=== PATIENT | male | born 1965 | race American Indian/Alaskan Native ===

== ENCOUNTER 2016-09-25 02:37 | Emergency (ER) | payer MEDICARE, OTHER ==
[~2016-09-25 02:37] MED LIST: ADRENALIN ONE; CORDARONE IV ONE; SODIUM BICARBONATE IV ONE
--- NOTE | 2016-09-25 03:16 | Emergency Department Report ---
ED CPR HPI - General Chief Complaint: Cardiac Arrest/CPR Stated Complaint: CARDIAC ARREST Time Seen by Provider: 09/25/16 02:37 Source: EMS Mode of arrival: Stretcher Limitations: Altered Mental Status, Physical Limitation, Other - History of Present Illness Initial Comments: 51-year-old male with a past medical history of CAD, diabetes, and hypertension presents to the hospital with complaints of chest pain and presents to ER with cardiac arrest. EMS reports that they received a chest pain call that was started 40 minutes prior to their arrival. Patient received aspirin in route. We received notification of possible ST elevation IL without EKG transmission. Patient arrested on the ramp and presented with chest compressions in progress. Supplementation to [id number] ventilation and continued chest compressions upon arrival to the ED. No further history of present illness at this time. EMS report glucose in the 500s. Patient was home alone. ED Review of Systems ROS: Stated complaint: CARDIAC ARREST Other details as noted in HPI Comment: Unobtainable due to pts medical conditions ED Past Medical Hx - Past Medical History Previous Medical History?: Yes Hx Hypertension: Yes Hx Heart Attack/AMI: Yes Hx Diabetes: Yes Additional medical history: "extensive history" ED Physical Exam - General Limitations: Other - Other Other exam information: General: Limited by unresponsive Head exam: Atraumatic, normocephalic Eyes exam: Pupils equal reactive to light ENT: Moist mucous membrane Neck exam: Normal inspection Respiratory exam: Intermittent agonal respirations breath sounds Cardiovascular: Pulseless upon arrival Abdomen: Soft, nondistended Extremity: No spontaneous movement, no deformity Back: Normal Inspection Neurologic: GCS equals 3, unresponsive, no spontaneous movement Psychiatric: Unresponsive Skin: Warm, dry, intact ED Course - Reevaluation(s) Reevaluation #1: 09/25/16 03:14 Patient was initially intubated successfully and received epinephrine with return of spontaneous circulation. Blood pressure was actually elevated. Patient's rhythm then deteriorated to V. tach and patient received defibrillation. Epinephrine and amiodarone also given. Despite resuscitation efforts patient to maintain in pulses V. tach and required subsequent additional defibrillation and epinephrine doses. Rhythm then deteriorated to PEA. He received additional epinephrine, bicarbonate, and resuscitation efforts patient remained in PEA and subsequently deteriorated to asystole. Pupils fixed and dilated. Time of 3:04 AM. 09/25/16 03:40 - Intubation Time Out Performed: Yes Sedative: none Laryngoscope: Juan Size: 3 ET Tube Size: 8 Tube Secured Depth (cm): 22 Tube Secured Location: lips Tube Placement Confirmation: visualized tube passing t, equal breath sounds bilat, no breath sounds over epi, confirmation by capnometr Patient Tolerated Procedure: well Intubation Complications: none ED Medical Decision Making - EKG Data -: EKG Interpreted by Me - EKG Data 09/25/16 03:16 Initial EMS EKG shows a tachycardic rhythm at 162 that appears to be a right bundle-branch block with left anterior fascicular block. Possible ST elevation in the lateral leads possible depression in the inferior leads - Medical Decision Making Despite resuscitation efforts patient rhythm contents deteriorated and he remained pulses rhythm for greater than 30 minutes. Time of 3:04 AM. - Differential Diagnosis IL, PE, Critical Care Time: Yes Critical care time in (mins) excluding proc time.: 30 (min) Critical care attestation.: If time is entered above; I have spent that time in minutes in the direct care of this critically ill patient, excluding procedure time. ED Disposition Clinical Impression: Cardiopulmonary arrest, Chest pain, Hyperglycemia, Hx of coronary artery disease Disposition: Is pt being admited?: No Condition: Stable Instructions: Chest Pain (ED) Referrals: PRIMARY CARE, [Primary Care Provider] - 3-5 Days Time of Disposition: 03:20
== END 2016-09-25 05:20 ==
LOC: ED 02:37
DX: I46.9 Cardiac arrest, cause unspecified (principal); R07.9 Chest pain, unspecified; E11.65 Type 2 diabetes mellitus with hyperglycemia; I10 Essential (primary) hypertension; I25.2 Old myocardial infarction; I25.10 Atherosclerotic heart disease of native coronary artery without angina pectoris
CPT/HCPCS: 31500; 92950; 99291; J0171; J0282